=== PATIENT | male | born 1980 | race African-American/Black ===

== ENCOUNTER 2018-12-17 00:51 | Emergency (ER) | payer OTHER ==
[~2018-12-17] VITALS: Ht 175.3 cm; Wt 82.3 kg
[2018-12-17 00:51] VITALS: BP 133/85
[2018-12-17] MEDS ORDERED: AMOX500C PO (04:04)
[2018-12-17] MEDS ORDERED: AMOXICILLIN 500 MG CAP PO ONE (04:15)
== END 2018-12-17 04:15 | disposition home or self-care (01) ==
LOC: M ED 00:51
DX: J02.0 Streptococcal pharyngitis (principal)